=== PATIENT | female | born 1960 | race African-American/Black ===

== ENCOUNTER 2017-01-30 19:56 | Emergency (ER) | payer OTHER ==
[2017-01-30 20:30] VITALS: BP 163/103
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
[2017-01-30] MEDS ORDERED: HYDROCODONE/ACETAMINOPHEN 5-325 MG 6 TAB/DSPK PO PRN (22:25)
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
== END 2017-01-30 22:30 | disposition home or self-care (01) ==
LOC: ER 19:56
DX: M79.642 Pain in left hand (principal); M79.645 Pain in left finger(s); V43.52XA Car driver injured in collision with other type car in traffic accident, initial encounter; E11.9 Type 2 diabetes mellitus without complications
CPT/HCPCS: 99283; 73130; L1830

== ENCOUNTER 2017-01-31 13:51 | Emergency (ER) | payer OTHER ==
[2017-01-31] MEDS ORDERED: IBUPROFEN 800 MG TABLET PO ONE (14:27)
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
[2017-01-31 16:50] VITALS: BP 133/82
--- NOTE | 2017-02-01 17:36 | EKG REPORT ---
SEVERITY:- ABNORMAL ECG - SINUS TACHYCARDIA LEFT AXIS DEVIATION PROBABLE LEFT VENTRICULAR HYPERTROPHY BORDERLINE PROLONGED QT INTERVAL : Confirmed by: [place] 01-Feb-2017 17:35:57
== END 2017-01-31 16:57 | disposition home or self-care (01) ==
LOC: ER 13:51
DX: S80.01XA Contusion of right knee, initial encounter (principal); S63.602A Unspecified sprain of left thumb, initial encounter; R07.9 Chest pain, unspecified; M54.2 Cervicalgia; M54.9 Dorsalgia, unspecified; V89.2XXA Person injured in unspecified motor-vehicle accident, traffic, initial encounter; M79.642 Pain in left hand; R03.0 Elevated blood-pressure reading, without diagnosis of hypertension; E11.9 Type 2 diabetes mellitus without complications
CPT/HCPCS: 71020; 93005; 93010; 99284

== ENCOUNTER 2017-02-20 12:45 | Emergency (ER) | payer OTHER ==
[2017-02-20 12:56] VITALS: BP 137/83
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
== END 2017-02-20 13:40 | disposition home or self-care (01) ==
LOC: ER 12:45
DX: M62.838 Other muscle spasm (principal); M54.5 Low back pain
CPT/HCPCS: 99283

== ENCOUNTER 2017-03-26 10:54 | Emergency (ER) | payer OTHER ==
[2017-03-26] MEDS ORDERED: KETOROLAC TROMETHAMINE 60 MG/2 ML SDV IM ONE (11:34)
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
[2017-03-26 12:00] VITALS: BP 138/87
== END 2017-03-26 11:55 | disposition home or self-care (01) ==
LOC: ER 10:54
DX: R51 Headache (principal); R11.0 Nausea; M54.6 Pain in thoracic spine; M54.5 Low back pain; E11.9 Type 2 diabetes mellitus without complications
CPT/HCPCS: 99283; 96372; J1885

== ENCOUNTER 2017-04-07 11:34 | Emergency (ER) | payer OTHER ==
[2017-04-07 11:39] VITALS: BP 145/84
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
== END 2017-04-07 12:10 | disposition home or self-care (01) ==
LOC: ER 11:34
DX: T14.8 Other injury of unspecified body region (principal); V49.40XD Driver injured in collision with unspecified motor vehicles in traffic accident, subsequent encounter; M54.2 Cervicalgia; M54.5 Low back pain; M54.6 Pain in thoracic spine; M62.830 Muscle spasm of back; G44.209 Tension-type headache, unspecified, not intractable; R11.0 Nausea; E11.9 Type 2 diabetes mellitus without complications
CPT/HCPCS: 99283

== ENCOUNTER 2017-04-17 03:12 | Emergency (ER) | payer OTHER ==
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
[2017-04-17 05:50] VITALS: BP 125/82
== END 2017-04-17 05:48 | disposition home or self-care (01) ==
LOC: ER 03:12
DX: M54.5 Low back pain (principal); M54.6 Pain in thoracic spine
CPT/HCPCS: 72131; 99283

== ENCOUNTER 2017-04-25 08:37 | Emergency (ER) | payer OTHER ==
[2017-04-25] MEDS ORDERED: KETOROLAC TROMETHAMINE 60 MG/2 ML SDV IM ONE (09:03)
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
[2017-04-25] MEDS ORDERED: LIDOCAINE 5% (700 MG) TRANSDERMAL ADH..PATCH TP ONE (10:09)
[2017-04-25 10:30] VITALS: BP 143/87
== END 2017-04-25 10:29 | disposition home or self-care (01) ==
LOC: ER 08:37
DX: R03.0 Elevated blood-pressure reading, without diagnosis of hypertension (principal); M54.9 Dorsalgia, unspecified; R11.0 Nausea
CPT/HCPCS: 99283; 96372; 72070; J1885

== ENCOUNTER 2017-05-06 03:52 | Emergency (ER) | payer OTHER ==
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
[2017-05-06 04:31] VITALS: BP 131/78
== END 2017-05-06 04:32 | disposition home or self-care (01) ==
LOC: ER 03:52
DX: M54.6 Pain in thoracic spine (principal); E11.9 Type 2 diabetes mellitus without complications; Z90.710 Acquired absence of both cervix and uterus
CPT/HCPCS: 99283